=== PATIENT | female | born 1955 | race Caucasian/White ===

== ENCOUNTER 2017-11-19 09:33 | Emergency (ER) | payer OTHER ==
[~2017-11-19] VITALS: Ht 160 cm; Wt 70.0 kg
[~2017-11-19 09:33] MED LIST: AMOX125C CHEW; CLIN300C5 PO; HYDR-755 PO; INVE39IN IM; VESI5TAB2 PO
[2017-11-19 09:42] VITALS: BP 154/86; PULSE 91; RESP 16; TEMP 98.5; O2SAT 97
[2017-11-19] MEDS ORDERED: cogentin PO (09:51)
[2017-11-19] MEDS ORDERED: BENZ100 PO (10:32)
[2017-11-19] MEDS ORDERED: HUMIBIDDM PO (10:32)
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
[2017-11-22] MEDS ORDERED: BENZ0.5T PO (12:06)
== END 2017-11-19 10:45 | disposition home or self-care (01) ==
LOC: NEPK 09:33
DX: J06.9 Acute upper respiratory infection, unspecified (principal); F17.210 Nicotine dependence, cigarettes, uncomplicated; D64.9 Anemia, unspecified; M19.90 Unspecified osteoarthritis, unspecified site; F41.9 Anxiety disorder, unspecified; F20.9 Schizophrenia, unspecified; I12.9 Hypertensive chronic kidney disease with stage 1 through stage 4 chronic kidney disease, or unspecified chronic kidney disease; E11.22 Type 2 diabetes mellitus with diabetic chronic kidney disease; N18.9 Chronic kidney disease, unspecified
CPT/HCPCS: 99283